=== PATIENT | male | born 1965 | race Caucasian/White ===

== ENCOUNTER 2016-12-02 09:08 | Inpatient (IN) | payer OTHER ==
[~2016-12-02] VITALS: Ht 147.3 cm; Wt 47.0 kg
--- NOTE | ~2016-12-02 | A ---
[facility] Nutrition Therapy DATE: 12/03/16 Patient: RICO MILLER Physician: LADONNA Address: [address] [facility] Room/Bed: [address] [place] [address], Zip: [place] [address] Admit Date: 12/02/16 Date of : [birth year] Height: 4 10 Weight: 93 42.5 NUTRITIONAL ASSESSMENT: REASON: 1 point for home TFs 51 yo male admitted for decreased oxygen, possible aspiration PNA PMH: Mental retardation, nonverbal, aphasic, dysphagia s/p PEG, seizure disorder, failure to thrive, CAD, functional quadriplegia, cerebral palsy, [place], C.diff Anthropometrics: Ht: 4'10" Wt: 42.5 kg BMI: 19.6 Labs: K+ 3.4 Creat 0.4 Alb 3.0 Meds: NaCl, Os-fadi + D, MgSO4, KCl, MVI + minerals, protonix, lipitor I/O & Bowel function: 0/1, last BM 12/02 Skin Integrity: Old pressure ulcer scar left buttock Redness to COURTNEY Edema: None noted Estimated Nutrition Needs: 1277-4475 kcals (30-35 kcals/kg) 51-64 grams protein (1.2-1.4 grams/kg) Diet: NPO Home enteral nutrition regimen: Osmolite 1.5 @ 50 mL/hr + 30 grams protein supplement Provides: ~1800 kcals/ 105 grams protein Not provided specific protein supplement, therefore, exact amount of kcals provided from home regimen unknown Assessment: Chart reviewed, events noted. 51 yo male admitted for possible aspiration PNA. Per information in chart, the pt is typically NPO and receives home EN regimen as noted above. Pt is nonverbal, and came [facility] hospital [facility] [place]. Per RN report, the pt was recently discharged from an OSH, with chronic ileus and recurrent aspiration PNA. Of note, the pt has contractures, and his positioning could be contributing to aspiration, poor enteral tolerance. RD discussed this with MD, who also adds that the pt is likely not able to clear his secretions well. Pt is currently being taken down for PICC line per RN [facility] Nutrition Therapy DATE: 12/03/16 Patient: RICO MILLER Physician: WETANG Address: [address] [facility]/Bed: [address], Zip: [place] [address] Admit Date: 12/02/16 Date of : [birth year] Height: 4 10 Weight: 93 42.5 report, and he has not received any enteral nutrition since admission. Please see recommendationa below. Dx: Inadequate protein-energy intake RT clinical condition, possible aspiration PNA AEB NPO status. Intervention: 1. NPO 2. Enteral nutrition once medically feasible Monitoring, Evaluation and Goals: 1. Enteral nutrition; tolerate >80% goal volume once medically feasible 2. Improve labs; K+ 3. Weight; prevent weight loss 4. GI; promote regular GI function Recommendations: 1. Ensure the pt's feeding tube is in the correct position. 2. Consult GI regarding increased residuals and reported chronic ileus. 3. Once medically feasible, resume enteral nutrition with Osmolite 1.5 @ 20 mL/hr. Increase by 10 mL q 6 hrs as tolerated to goal of 40 mL/hr This would provide: 1440 kcals/ 60 grams protein/ 730 mL free H20 PLEASE NOTE: RD RECOMMENDING DECREASE IN EN GOAL RATE, THE PT'S HOME REGIMEN COULD BE EXCEEDING HIS NUTRITIONAL NEEDS AND RESULTING IN SYMPTOMS OF GI INTOLERNCE AND ELEVATED RESIDUALS 4. Ensure HOB is elevated at a minimum of 30-45 degrees. Pt is at moderate nutritional risk. RD will follow hospital course per protocol. Respectfully, JERROD LEMUS RD, LD Food and Nutritional Services [facility] cc: client file
--- NOTE | ~2016-12-02 | EKG ---
PATIENT: RICO MILLER UNIT #: [id number] Ventricular Rate: 124 BPM Atrial Rate: 124 BPM P-R Interval: 170 ms QRS Duration: 56 ms Q-T Interval: 278 ms QTC Calculation(Bezet): 399 ms P [place]: 66 degrees Calculated R [place]: 159 degrees Calculated T [place]: 80 degrees Diagnosis Line: Sinus tachycardia Diagnosis Line: Possible Lateral infarct , age undetermined Diagnosis Line: Marked ST abnormality, possible septal Diagnosis Line: subendocardial injury Diagnosis Line: Abnormal ECG Diagnosis Line: When compared with ECG of 06-JUN-2016 22:37, Diagnosis Line: Questionable change in QRS axis Diagnosis Line: Borderline criteria for Lateral infarct are now Diagnosis Line: Present Diagnosis Line: ST elevation now present in Inferior leads Diagnosis Line: Confirmed by ISABEL HARE MD ([id number]) on Diagnosis Line: 12/03/2016 8:29:10 AM INTERPRETING MD: PAYAM COYNE
--- NOTE | ~2016-12-02 | FU ---
[facility] Nutrition Therapy DATE: 12/05/16 Patient: RICO MILLER Physician: LADONNA Address: [address] [facility] Room/Bed: [address] [place] [address], Zip: [place] [address] Admit Date: 12/02/16 Date of : [birth year] Height: 4 10 Weight: 104 47.5 NUTRITION MONITORING/FOLLOW-UP: Reason: Enteral nutrition follow-up 51 y/o male admitted for decreased oxygen, possible aspiration PNA Anthropometrics: ht: 4'10" wt: 104# (47 kg) BMI 19 Labs: No updated labs since most recent RD assessment Meds: lactulose, protonix IV, keppra, NaCl, zosyn, lipitor, plavix I&O's: 3165/161, last BM 12/05 (diarrhea noted) Skin: no change since previous note. No edema Estimated Nutrition Needs: 4129-9835 kcal (30-35 kcal/kg) 51-64 g protein (1.2-1.4 g/kg) Diet: NPO Home enteral nutrition regimen: Osmolite 1.5 @ 50 mL/hr + 30 grams protein supplements Provides: ~1800 kcal, 105 g protein (exact amount of kcals provided from protein unknown) Assessment: Chart reviewed, events noted. Pt seen for enteral nutrition follow up. Per chart, the pt is typically NPO and receives home enteral nutrition regimen as noted above. Since previous assessment on 12/03/2016, no tubefeeds have been ordered. Per chart and RN, the tubefeeds have been put on hold due to high residuals. This pt has been NPO since admission. The RN reports that the pt's foster mom reported the pt frequently experiences high residuals, with both continuous and bolus feeds. RN reports that the pt's MD is supposed to call today, will hopefully provide more information regarding the plan for this pt's nutrition. The pt had a chest x-ray with results pending for a possible ileus. Please see recommendations, RD to follow. Dx: Inadequate oral intake r/t clinical condition, possible aspiration PNA AEB NPO status -ACTIVE Intervention: 1. NPO 2. Enteral nutrition once medically feasible Monitoring, Evaluation and Goals: [facility] Nutrition Therapy DATE: 12/05/16 Patient: RICO MILLER Physician: LADONNA Address: [address] [facility] Room/Bed: [address] [place] [address], Zip: [place] [address] Admit Date: 12/02/16 Date of : [birth year] Height: 4 10 Weight: 104 47.5 1. Enteral nutrition; tolerate >80% goal volume once medically feasible -NOT ACTIVE/NOT MET 2. Improve labs- K+ -UNMEASURED 3. Weight; prevent weight loss -IN PROGRESS 4. GI; promote regular GI function -NOT MET CONTNUE ABOVE GOALS Recommendations: 1. Monitor GI function noting possible ileus. 2. Once medically feasible, begin enteral nutrition support with Osmolite 1.5 @ 20 mL/hr. Increase by 10 mL q 6 hours as tolerated to goal of 40 mL/hr. This would provide 1440 kcals, 60 g protein, 730 free h20. PLEASE NOTE, THIS IS A DECREASE IN EN GOAL RATE, THE PT'S HOME REGIMEN COULD BE EXCEEDING HIS NUTRITIONAL NEEDS AND RESULTS IN SYMPTOMS OF GI INTOLERANCE AND ELEVATED RESIDUALS 3. Ensure HOB is elevated at a minimum of 30-45 degrees as feasible. Pt is at moderate nutritional risk, RD to follow up per protocol. Respectfully, STACY MCGOWAN, manager of internal audit Angelina Cleveland, RD, LD Food and Nutritional Services [facility] cc: client file
--- NOTE | ~2016-12-02 | CO ---
Unit #: [id number] #: [id number] Patient: RICO MILLER [id number] [address] [address] [id number] MR#: [id number] NAME: RICO MILLER. ROOM: 559 Age: 51 Sex: M Admission Date: 12/02/2016 : 1965 Attending Physician: Tommie Rushing M.D. Primary Care Physician: Jairo Lacey M.D. Consultation Date: 12/05/2016 CONSULTATION REPORT PRIMARY CARE PHYSICIAN Jairo Lacey M.D. REASON FOR CONSULTATION High residuals on PEG feeds. HISTORY OF PRESENT ILLNESS Mr. Miller is a 51-year-old white gentleman, who is well known to me from [facility]. The patient has longstanding history of cerebral palsy with mental retardation, and has been in and out of the hospitals over the past 6 months, most recently in [facility], where he was admitted for several days as a result of aspiration pneumonia and treated with multitude of antibiotics. He is on long-term PEG feeds and his repeated x-rays have shown considerable gaseous distention of the stomach, small bowel, and large bowel. The patient at best is nonverbal and curled up in bed because of flexion contractures. He is on multiple antibiotics at the present time. PAST MEDICAL HISTORY Significant for history of cerebral palsy; history of C diff colitis; history of VRE; right upper extremity DVT, functional quadriplegia; mental retardation; dysphagia, status post PEG placement; seizure disorder; history of ulcerative colitis and proctitis; history of chronic respiratory failure; aspiration, requiring intubation the past. PAST SURGICAL HISTORY Included PEG placement, cholecystectomy, and lower left extremity surgery. FAMILY HISTORY Not available due to the patient's mental status. SOCIAL HISTORY Not available due to the patient's mental status. REVIEW OF SYSTEMS Also not possible due to his mental status. ALLERGIES He is allergic to Meperidine. MEDICATIONS Medications prior to admission included clindamycin, hydrocodone/acetaminophen, Protonix, Cogentin, iron, Keppra, midodrine, multivitamins, erythromycin, and calcium. Unit #: [id number] #: [id number] Patient: RICO MILLER PHYSICAL EXAMINATION GENERAL: He is nonverbal, comfortable lying in bed. He has flexion contractures of the lower extremities. VITAL SIGNS: His temperature is 97.8, pulse is 93 per minute and regular, respiratory rate is 18, blood pressure is 135/72. He weighs 104 pounds, close to his baseline weight. HEENT: He has mild pallor. There being no icterus, lymphadenopathy, or peripheral edema. CARDIOVASCULAR: Normal heart sounds. No murmurs. LUNGS: Auscultation over the lungs reveal bilateral diminished symmetric air entry. The patient has severe kyphoscoliosis. ABDOMEN: Examination shows minimal gaseous distention with abdomen is soft and nontender. Liver and spleen are not palpable. Bowel sounds normal. The patient does have healthy PEG site with an indwelling 20-Cypriot PEG tube. DIAGNOSTIC STUDIES LABORATORY RESULTS: Shows a normal BUN and creatinine, and electrolytes. Serum potassium is 4.3 yesterday. Albumin is 3.0. White count is 6000; hemoglobin is 8.4, baseline hemoglobin of 12 to 13 and platelet count of 180 to 190. IMAGING STUDIES: Multiple x-rays of the chest and abdomen shows gaseous distention in the entire GI tract indicating poor motility rather than any obstruction. CLINICAL IMPRESSION 1. The patient with functional gastroparesis. This could be a complication of underlying sepsis or pneumonia. The gaseous distention also worsened by the fact the patient is on lactulose. 2. Underlying multiple medical problems including respiratory infection. MANAGEMENT PLAN 1. We will discontinue lactulose. To start on low dose of prokinetic Reglan 5 mg q.6. hours. 2. Restart the PEG tube feeds tomorrow as per protocol. 3. Consider conversion of gastrostomy to jejunostomy if the patient is still having significantly high-residuals after the above changes. Thank you for asking me to see this pleasant gentleman. I appreciate the consult. Dictated by... Indra Ricks/dale TD: 12/07/2016 13:31 JOB #: [id number] CC: Indra Gross M.D. Loran P. Moore, M.D. Unit #: [id number] #: [id number] Patient: RICO MILLER CONSULTATION REPORT Page 1 of 1 X Erasto Sam MD CONSULTATION REPORT
--- NOTE | ~2016-12-02 | CR6 ---
[facility] A Service of [facility] RADIOLOGY TEXT RESULTS PATIENT: RICO MILLER LOCATION: [place] [address] : [birth year] UNIT #: [id number] AGE: [address]: HUSAM WOOD V SEX: M ORDER DR: [id number] [facility] [address]. [place], [place] [address] [id number] MR#: [id number] Acc #: [id number] NAME: RICO MILLER : 1965 SEX: M STUDY DATE/TIME: 12/05/2016 11:22 UNIT: [facility] ROOM: [facility] STUDY DESCRIPTION: CR Abdomen Portable Sng View Attending Physician: Husam Wood M.D. Ordering Physician: Ed Luke Allen M.D. Primary Care Physician: Jairo Lacey M.D. MEDICAL IMAGING REPORT This report is preliminary unless electronic signature is present EXAM Abdomen one-view 12/05/2016 1122 hours CLINICAL HISTORY Abdominal pain, abdominal swelling and watery stools for 1 day. Patient from [facility]. COMPARISON CT abdomen 12/02/2016 and abdominal film 12/02/2016. FINDINGS A single view of the abdomen demonstrates leftward scoliosis of the lumbar spine. There are flexion contractures of the arms and legs. There is slightly increased amount of gas seen in the stomach and small bowel without significant distension. No definite bowel wall thickening or suspicious calcification. There is colon interposed between the liver and right hemidiaphragm. No supine evidence of free air. IMPRESSION The film is limited by the flexion contractures and scoliosis. There is increased gas in loops of small bowel, stomach and colon without distension or wall thickening. There is no supine evidence of free air. The amount of gas in the bowel is increased from 12/02/2016. Dictated by... Zainab Bustamante M.D. THIS IS AN ELECTRONICALLY VERIFIED REPORT Zainab Bustamante M.D. at 12/05/2016 2:31 PM JEANNE/cody TD: 12/05/2016 14:12 [facility] A Service of [facility] RADIOLOGY TEXT RESULTS PATIENT: RICO MILLER LOCATION: [place] [address] : [birth year] UNIT #: [id number] AGE: [address]: HUSAM WOOD V SEX: M ORDER DR: JOB #: [id number] MEDICAL IMAGING REPORT Page 1 of 1 COPY
--- NOTE | ~2016-12-02 | CO ---
Unit #: [id number] #: [id number] Patient: RICO MILLER [id number] [address] [place], [place] [address] [id number] I MR#: [id number] NAME: RICO MILLER ROOM: 559 Age: 51 Sex: M Admission Date: 12/02/2016 : 1965 Attending Physician: Tommie Rushing M.D. Primary Care Physician: Jairo Lacey M.D. CONSULTATION REPORT TYPE OF CONSULTATION Cardiology REASON FOR CONSULTATION Bradycardia. HISTORY OF PRESENT ILLNESS This is a 51-year-old white male, with history of profound mental retardation and cerebral palsy, is a [facility]ro of the [facility]. He is unable to provide any medical history because of his current mental status. Information has been obtained from the chart and previous records. According to the records, the patient was seen by our group in 2014 for sinus bradycardia. At that time, his heart rate was in the 40s. He also had a brief period of paroxysmal atrial fibrillation in 2012, but was not put on beta-wili secondary to bradycardia. He was recently discharged from [facility] on 11/22/2016, for acute respiratory failure and pneumonia requiring intubation. He was [facility] to his jail. While at the jail, the patient was noted to be tachycardic and had some abdominal distention, therefore, was sent to the hospital for evaluation. He has been found to have a right pneumonia and has been treated with IV antibiotics. During the course of his stay, the patient developed bradycardia with heart rate was in the 30s. From review of rhythm strips, he has had a sinus pauses up to 2.8 seconds. He is not on any rate lowering medications. He is on Midrin for hypotension in the past. He has been hypokalemic, where his potassium level was 2.7. Troponin negative. PAST MEDICAL HISTORY 1. A 2D echocardiogram on 05/03/2013, showed an ejection fraction approximately 55% with normal valves. 2. Paroxysmal atrial fibrillation, briefly noted in 2012, not on anticoagulation. 3. Cerebral palsy. 4. Left upper extremity deep vein thrombosis in 2014. 5. Legally blind. 6. Profound mental retardation. 7. Chronic duodenal ileus. 8. Right pneumothorax in 2014. 9. Seizure disorder. 10. Chronic aspiration pneumonia, status post PEG placement. 11. Congenital right hip dysplasia. Unit #: [id number] #: [id number] Patient: RICO MILLER 12. Nonsmoker. 13. jail resident. PAST SURGICAL HISTORY 1. PEG placement. 2. Cholecystectomy. 3. Lower extremity surgery. SOCIAL HISTORY The patient lives in a jail. He is a castro of the critical access hospital. He is mostly bed or chair bound. There is no history of illicit drug or alcohol use. FAMILY HISTORY Unobtainable. ALLERGIES Demerol. MEDICATIONS Home medications; 1. Clindamycin 20 mL t.i.d. 2. Hydrocodone/acetaminophen 5/325 q.4 hours p.r.n. 3. Protonix 40 mg daily. 4. Cogentin 1 mg daily. 5. Ferrex 150 mg daily. 6. Keppra . 7. ProAmatine 10 mg t.i.d. 8. Multivitamin one tablet daily. 9. Erythromycin 5 mL t.i.d. 10. Calcium 2.5 mL daily. REVIEW OF SYSTEMS Unable to obtain, because of the patient's current mental status. PHYSICAL EXAMINATION VITAL SIGNS: Blood pressure 110/65, heart rate 114, and temperature 98.0. BMI of 19. GENERAL: This is a 51-year-old, middle-aged, white male, who is in no acute distress. NEUROLOGIC: He is awake with his eyes open. Moans at times. Noted for contractures. NECK: Trachea is midline. No thyromegaly or lymphadenopathy. No jugular venous distention. HEART: S1 and S2. Heart sounds are normal. No murmurs. No rubs or clicks. Regular rate and rhythm. LUNGS: With rhonchi in both lung bases. ABDOMEN: Soft with bowel sounds are present. G-tube is present. EXTREMITIES: Without leg edema. SKIN: Pale and dry. DIAGNOSTIC STUDIES LABORATORY RESULTS: Glucose 65. BUN creatinine 0.4, sodium 143, potassium 2.7, and magnesium 1.6. Troponin less than 0.05. White count 4.8, hemoglobin 8.4, hematocrit 25.7, and platelet count is 192. IMAGING STUDIES: CT of the chest showed air space density in the posterior right lower lobe. Findings favor pneumonia. Unit #: [id number] #: [id number] Patient: RICO MILLER CARDIOVASCULAR STUDIES: Electrocardiogram; sinus tachycardia with a rate of 124 beats per minute with a nonspecific ST wave abnormalities. IMPRESSION 1. Right lower lobe pneumonia. 2. Recurrent aspiration pneumonia. 3. Severe hypokalemia. 4. Sinus bradycardia with sinus pauses up to 2.8 seconds. 5. Cerebral palsy/profound mental retardation. PLAN 1. Cardiology was consulted for bradyarrhythmias. The patient is noted to have pauses less than 3 seconds, where he is asymptomatic. 2. We will check thyroid function. 3. Supplement potassium. 4. The patient is not on any rate lowering medications. Continue Midrin. Blood pressure is currently controlled. 5. We will follow the patient with you. Thank you for allowing us to assist with this patient's care. Dictated by... Meghan Nelson/dale TD: 12/07/2016 06:33 JOB #: [id number] CONSULTATION REPORT Page 1 of 1 X Gómez Mckeon APRN X CONSULTATION REPORT
--- NOTE | ~2016-12-02 | CO ---
Unit #: [id number] #: [id number] Patient: RICO MILLER [id number] [address] [address] [id number] MR#: [id number] NAME: RICO MILLER. ROOM: 559 Age: 51 Sex: M Admission Date: 12/02/2016 : 1965 Attending Physician: Tommie Rushing M.D. Primary Care Physician: Jairo Lacey M.D. Consultation Date: 12/07/2016 CONSULTATION REPORT REASON FOR CONSULTATION Antibiotic management. HISTORY OF PRESENT ILLNESS The patient is a 51-year-old male with a history of cerebral palsy and mental retardation. No family members are at the bedside. All of his history is from the chart. Apparently, he was admitted with complaints of pneumonia at [facility] and had a prolonged stay. Those records will be reviewed. He is admitted at this time with low oxygenation and decreased level of consciousness. He has been on Zosyn, vancomycin and tobramycin. Infectious Disease consultation was requested for further evaluation and antibiotic management. PAST MEDICAL HISTORY 1. Possible aspiration pneumonia, requiring intubation at [facility] recently as noted above. 2. Recurrent pneumonia. 3. C diff colitis. 4. History of VRE. 5. Right upper extremity deep vein thrombosis. 6. Functional quadriplegia. 7. Mental retardation, slight developmental delay. 8. Cerebral palsy. 9. Chronic dysphagia, status post PEG tube placement. 10. Seizure disorder. 11. Possible ulcerative colitis. 12. Cholecystectomy. SOCIAL HISTORY Remarkable for recent hospitalization and stay at foster home. ALLERGIES Meperidine, reaction unknown. CURRENT MEDICATIONS Reviewed antibiotics include day 7 of Zosyn, vancomycin, and tobramycin. PHYSICAL EXAMINATION GENERAL: Lying in bed, does not seem to be in any distress. VITAL SIGNS: Temperature 98, pulse 75, respirations 16, blood pressure 110/60. HEENT: Unremarkable. CHEST: Clear to auscultation. HEART: Normal S1, S2. Unit #: [id number] #: [id number] Patient: RICO MILLER ABDOMEN: Soft and nontender. EXTREMITIES: Shows contractures. DIAGNOSTIC STUDIES IMAGING STUDIES: CT scan of the chest shows air bronchograms and in the right lower lobe airspace disease, compatible with pneumonia. CT of abdomen and pelvis unremarkable for any acute changes. LABORATORY RESULTS: BUN less than 5, creatinine 0.3. WBC 3.3, hemoglobin 8, platelets 180. Urinalysis; had some pyuria. Cultures including blood and urine are negative. So far, sputum culture is pending. ASSESSMENT 1. Healthcare-associated pneumonia. 2. Mental retardation. 3. Possible aspiration. PLAN At this time, the patient is clinically stable. All cultures were negative. He has been hypotensive, requiring any pressors or hypoxic. Therefore, we will go ahead and discontinue tobramycin, doubt he needs dual gram-negative coverage. Continue vancomycin and Zosyn. If continues to remain stable or improved, recommended a total of 7 to 10 days of treatment. Further recommendation depending upon the course. I would like to thank Dr. Ivy for requesting us to participate in the care of this patient. We will follow this patient along with you. Dictated by... Indra Newsome TD: 12/09/2016 02:53 JOB #: [id number] CONSULTATION REPORT Page 1 of 1 X Larry Greene MD CONSULTATION REPORT
--- NOTE | ~2016-12-02 | FU ---
[facility] Nutrition Therapy DATE: 12/08/16 Patient: RICO MILLER Physician: LADONNA Address: [address] [facility] Room/Bed: [address] [place] [address], Zip: [place] [address] Admit Date: 12/02/16 Date of : [birth year] Height: 4 10 Weight: 94 43 NUTRITION MONITORING/FOLLOW-UP: Reason: TF follow-up 51 y/o male admitted for decreased oxygen, possible aspiration PNA Anthropometrics: ht: 4'10" wt: 94# (43 kg) BMI 19 -Admit weight 104# Labs: Cl-112, BUN <5, Creat 0.5, Ca++ 8.2, Alb 3.0 Meds: Protonix IV, Keppra, NaCl, Zosyn, Lipitor, reglan I&O's: 4210/12. BM 12/06 Skin: No change since previous note, no edema. Estimated Nutrition Needs: 8699-8109 kcal (30-35 kcal/kg) 51-64 g protein (1.2-1.4 g/kg) Diet: NPO Assessment: Chart reviewed, events noted. Pt seen for enteral nutrition follow-up. Pt is now receiving recommended enteral nutrition of Osmolite 1.5 @ 40 mL/hr (977mL x past 24 hours, 101% goal volume per pump history). RN reports that the pt is tolerating the tubefeeds well, and that the MD will be adding free h20 flushes to the order. Pt is unable to provide information due to mental status. RD will continue to follow. Dx: Inadequate protein-energy intake r/t clinical condition, possible aspiration PNA AEB NPO status -RESOLVED, pt now receiving >80% goal volume Dx: Inadequate oral intake r/t PMH aeb alternative nutrition support in place. Intervention: 1. Enteral nutrition 2. NPO Monitoring, Evaluation and Goals: 1. Enteral nutrition; tolerate >80% goal volume once medically feasible -MET 2. Improve labs; K+ (improved) -MET/IN PROGRESS 3. Weight; prevent weight loss -NOT MET/IN PROGRESS 4. GI; promote regular GI function -IN PROGRESS [facility] Nutrition Therapy DATE: 12/08/16 Patient: RICO MILLER Physician: LADONNA Address: [address] [facility] Room/Bed: [address] [place] [address], Zip: [place] [address] Admit Date: 12/02/16 Date of : [birth year] Height: 4 10 Weight: 94 43 Recommendations: 1. Continue enteral nutrition support of Osmolite 1.5 @ 40 mL/hr x 24 hours. This provides 1440 kcal, 60 g protein, 730mL free h20. Add free water flushes per MD. 2. Continue to monitor for signs of enteral nutrition intolerance. RD will f/u per protocol as pt is at moderate nutritional risk. Respectfully, STACY MCGOWAN, operations intern Reyna Maciel MS, RD, LD [facility] cc: client file
--- NOTE | ~2016-12-02 | CT57 ---
[facility] A Service of [facility] & [facility] RADIOLOGY TEXT RESULTS PATIENT: RICO MILLER LOCATION: [facility] 559-01 : [birth year] UNIT #: [id number] AGE: [address]: RIDGE WOODUJ V SEX: M ORDER DR: [id number] [facility] [address] [place], [place] [address] [id number] I MR#: [id number] Acc #: [id number] NAME: RICO MILLER. : 1965 SEX: M STUDY DATE/TIME: 12/02/2016 13:05 UNIT: [facility] ROOM: [facility] STUDY DESCRIPTION: CT Chest Wo Cont Attending Physician: Annita Rico M.D. Ordering Physician: Eran Salmon M.D. Primary Care Physician: Jairo Lacey M.D. MEDICAL IMAGING REPORT This report is preliminary unless electronic signature is present EXAM CT chest without contrast 12/02/2016 1305 hours HISTORY 51-year-old man with elevated heart rate, low oxygen saturation levels, fever and abdominal distension today. COMPARISON CT chest 06/07/2016 TECHNIQUE Helical noncontrasted images were obtained from the thoracic inlet through the adrenal glands. Sagittal and coronal reconstructions were performed. Total exam DLP 1133 mGy-cm for the chest abdomen and pelvis study today. This CT exam was performed with one or more of the following radiation dose reduction techniques: automatic control, adjustment of mA and/or kV according to patient size, and iterative reconstruction. FINDINGS Images through the thoracic inlet demonstrate no thyroid mass. Images through the chest are degraded by artifact from flexion contractures of the arms and legs. Patient has some fluid debris in the mid trachea that is best seen on image 14 just prior to the bifurcation of the trachea which could be related to mucus or aspirated material. Cardiac chambers, pericardium and esophagus are normal. Lung window images demonstrate stable linear scarring at the right apex. Left lung demonstrates decrease in parenchymal densities in the left lower lobe with minimal linear scar. There is a peripheral area of airspace density with air bronchogram having a somewhat triangular shape at the posterolateral right lung base new from the prior study measuring 4.6 x 4.4 cm. It is favored that this represents an area of pneumonia although other entities including a mass or pulmonary emboli could have this STS. [facility] A Service of [facility] RADIOLOGY TEXT RESULTS PATIENT: RICO MILLER LOCATION: [facility] 559-01 : [birth year] UNIT #: [id number] AGE: [address]: HUSAM WOOD V SEX: M ORDER DR: appearance. Since it has developed since 06/07/2016 a mass is unlikely. There is no pleural fluid. Limited views through the upper abdomen are negative. IMPRESSION 1. Exam is compromised by scoliosis and flexion contractures. Study does confirm the presence of a new triangular-shaped area of air airspace density in the posterior right lower lobe abutting the pleural surface measuring up to 4.6 cm. Air bronchograms are present. Findings favor the presence of pneumonia. This is new from 06/07/2016. Interval clearing of airspace density from the medial superior segment right lower lobe and the left lower lobe which were present on 06/07/2016. 2. There is some dependent debris in the trachea above the level of the left and right bronchial bifurcation which could represent aspirated material versus mucus. Dictated by... Zainab Bustamante M.D. THIS IS AN ELECTRONICALLY VERIFIED REPORT Zainab Bustamante M.D. at 12/03/2016 9:23 AM JEANNE/lucio TD: 12/02/2016 22:15 JOB #: [id number] MEDICAL IMAGING REPORT Page 1 of 1 COPY
--- NOTE | ~2016-12-02 | CO ---
Unit #: [id number] #: [id number] Patient: RICO MILLER [id number] [address] [place], [place] [address] [id number] I MR#: [id number] NAME: RICO MILLER ROOM: 559 Age: 51 Sex: M Admission Date: 12/02/2016 : 1965 Attending Physician: Tommie Rushing M.D. Primary Care Physician: Jairo Lacey M.D. CONSULTATION REPORT HISTORY OF PRESENT ILLNESS Mr. Miller is a 51-year-old male resident of [place]; for a period, he has a history of cerebral palsy, mental retardation, C diff, VRE, seizures, ulcerative colitis, who presented to the emergency room because of hypoxia and tachycardia. Apparently, he had been hospitalized at [place] recently, he was there for about a month. No history is available from the patient. He is nonverbal. According to the chart, he has had multiple admissions for aspiration pneumonia. Caregiver apparently noticed high residuals over the last week, had a temperature of 99 as well as a low oxygen saturation. He had some loose stools yesterday, which was dark and was brought to the emergency room for evaluation. In the emergency department, initial temperature was 99.6, pulse was 123, blood pressure was 100/77, and O2 saturation was 98% on room air. Chest CT abdomen and pelvis were done and showed a marked scoliosis in flexion contractures, triangular-shaped area of airspace density in the posterior right lower lobe abutting the pleural surface measuring up to 4.6 cm, there was some air bronchograms present, this was a new area as compared to CT scan on 06/07/2016. There had also been interval clearing of airspace density in the medial superior segment of the right lower lobe and left lower lobe, which had been present on CT scan from 05/2016. There was some dependent debris in the trachea. BMP is remarkable for creatinine of 0.4, potassium of 3.2, Procalcitonin is 0.14, lactic acid is 1 and then 0.7. Coags were normal. White blood cell count was 4400, hematocrit 28.3, platelet count normal. PAST MEDICAL HISTORY Apparently admission at [facility] [place] in the past month for aspiration pneumonia, history of acute on chronic respiratory failure here in May, history of C diff, VRE, right upper extremity DVT, functional quadriplegia secondary to flexion contractures, mental retardation, developmental delay, cerebral palsy, chronic dysphagia with PEG tube, recurrent aspiration, seizure disorder, history of possible ulcerative colitis. PAST SURGICAL HISTORY Surgeries; PEG tube placement, cholecystectomy, left lower extremity surgery. ALLERGIES Meperidine. FAMILY HISTORY Unobtainable from the patient. Unit #: [id number] #: [id number] Patient: RICO MILLER SOCIAL HISTORY [facility]. Lives at a foster custodial. HOME MEDICATIONS Clindamycin, hydrocodone, Protonix, Cogentin, iron, Keppra, midodrine, multivitamins, erythromycin, and calcium. REVIEW OF SYSTEMS Not possible. The patient is nonverbal. PHYSICAL EXAMINATION VITAL SIGNS: Blood pressure 106/57, pulse 68, respiratory rate 16, afebrile. HEENT: Normocephalic and atraumatic. Pupils round, and reactive. Sclerae nonicteric. Nasal passages, patent. Oral cavity, patent. NECK: Has flexion contracture. LUNGS: Relatively clear bilaterally. CARDIAC: Heart sounds distant. Regular rate and rhythm. Could not appreciate murmur, rub or gallop. ABDOMEN: Nontender. Bowel sounds present. PEG tube in place. EXTREMITIES: Without edema. NEUROLOGIC: Nonverbal, looks around. Appears in no distress. DIAGNOSTIC STUDIES LABORATORY RESULTS: Personally reviewed. White blood cell count 41253, hematocrit 39, platelet count normal. IMAGING STUDIES: CT scans personally reviewed. IMPRESSION Possible right lower lobe pneumonia versus resolving pneumonia from admission at [facility] within the last month, low procalcitonin would favor not an active pneumonia. Other problems as mentioned above. PLAN We will recheck procalcitonin in the morning. I agree with continuing current antibiotics of vancomycin, Zosyn, and tobramycin for now. We will check sputum culture. We will try to obtain previous scans from [place] to see if current abnormalities represent worsening or improvement. Dictated by... Efren Vadlivia M.D. BRYCE/dale TD: 12/04/2016 06:10 JOB #: [id number] Unit #: [id number] #: [id number] Patient: RICO MILLER CONSULTATION REPORT Page 1 of 1 X Efren Valdiiva MD CONSULTATION REPORT
--- NOTE | ~2016-12-02 | XA166 ---
[facility] A Service of [facility] & [facility] RADIOLOGY TEXT RESULTS PATIENT: RICO MILLER LOCATION: [facility] 559-01 : [birth year] UNIT #: [id number] AGE: [address]: HUSAM WOOD V SEX: M ORDER DR: [id number] [address] [facility]. [place], [place] [address] [id number] I MR#: [id number] Acc #: [id number] NAME: RICO MILLER. : 1965 SEX: M STUDY DATE/TIME: 12/03/2016 14:31 UNIT: [facility] ROOM: [facility] STUDY DESCRIPTION: XA PICC Line Placement WO Port Attending Physician: Husam Wood M.D. Ordering Physician: Physician Non-Staff Primary Care Physician: Jairo Lacey M.D. MEDICAL IMAGING REPORT This report is preliminary unless electronic signature is present EXAM PICC line placement INDICATIONS IV access. PRE-PROCEDURE The procedure was explained to the patient and/or patient visitor services representative including risks, benefits, potential complications and potential for alternative forms of treatment. Informed consent was obtained, and prior to initiating the procedure a formal timeout procedure was performed. PROCEDURE Using full standard sterile barrier technique, including caps, gowns, gloves, masks, as well as sterile skin preparation and standard sterile draping, the left arm was prepped and draped in the usual fashion, and real-time sterile ultrasound guidance was used to localize a left brachial vein and to confirm vessel patency. A hard copy ultrasound image was recorded. After local anesthesia with 1% Xylocaine, the left brachial vein was punctured using real-time sterile ultrasound guidance, and an 0.018 guidewire was advanced into the superior vena cava, using fluoroscopic guidance. A 5-[place]ican double-lumen PICC was then measured to 36 cm and deployed with the tip positioned in the superior vena cava. The position of the line was documented with a radiographic image. The line was secured in place with an adhesive dressing and an antibiotic patch was applied. Total fluoro time was 1.1 minutes. The reference air kerma is 1 mGy. Initially, the right upper extremity was performed; however, the guidewire buckled and subsequent contrast was injected and showed that there were severe narrowings in the right upper extremity veins. [facility]. [facility] A Service of [facility] RADIOLOGY TEXT RESULTS PATIENT: RICO MILLER LOCATION: [facility] 559-01 : [birth year] UNIT #: [id number] AGE: [address]: HUSAM WOOD V SEX: M ORDER DR: IMPRESSION Successful left arm PICC line placement of a 5-[place]ican double-lumen PowerPICC via the left arm under ultrasound and fluoroscopic guidance. The tip of the PICC is in good position in the superior vena cava. Dictated by... Henrry Bhakta M.D. THIS IS AN ELECTRONICALLY VERIFIED REPORT Henrry Bhakta M.D. at 12/05/2016 4:01 PM BIANCA/trevor TD: 12/04/2016 02:37 JOB #: [id number] MEDICAL IMAGING REPORT Page 1 of 1 COPY
--- NOTE | ~2016-12-02 | DS ---
Unit #: [id number] #: [id number] Patient: RICO MILLER [id number] [address] [address] [id number] I MR#: [id number] NAME: RICO MILLER. ROOM: 9 Age: 51 Sex: M Admission Date: 12/02/2016 : 1965 Discharge Date: 12/11/2016 Attending Physician: Tommie Rushing M.D. Primary Care Physician: Jairo Lacey M.D. DISCHARGE SUMMARY PERTINENT HISTORY AND HOSPITAL COURSE The patient is a 51-year-old man with history significant for cerebral palsy, mental retardation, developmental delay, and recurrent seizures who was admitted for aspiration pneumonia. During his admission, the patient was treated with IV antibiotics. He completed his course of IV antibiotics, Zosyn, and vancomycin. Also, during his admission, the patient was started on Reglan to treat G tube residuals following initiation of Reglan. Residual volume following G tube feeding was resolved. He did not have a seizure recurrence during his admission. At discharge, the patient is afebrile. Vitals are stable. His plan is to be discharged home to his care providers. DISCHARGE MEDICATIONS 1. Keppra 1000 mg G tube b.i.d. 2. Benztropine 1 mg G tube daily. 3. Midodrine 10 mg G tube t.i.d. 4. Phenobarbital 60 mg G tube twice daily. 5. Temazepam 0.5 mg G tube twice daily. 6. Iron with B complex multivitamin 150 mg G tube daily. 7. Hydrocodone/acetaminophen 5/325 mg tab 1 G tube q.4 p.r.n. for pain. 8. Reglan 5 mg G tube 4 times daily. 9. Protonix 40 mg G tube daily. 10. Calcium solution 2.5 mL G tube daily. DISCHARGE DIAGNOSES 1. Healthcare-acquired pneumonia aspiration pneumonia. 2. Functional quadriplegia secondary to cerebral palsy. 3. Severe mental retardation. 4. Reflux. 5. Gastrostomy tube feeding. 6. Chronic dysphagia. 7. Seizure disorder. CONSULTATIONS DURING ADMISSION 1. Pulmonary consultation. 2. Gastroenterology consultation. 3. Infectious disease consultation. DISCHARGE INSTRUCTIONS 1. Patient will be discharged home. 2. Follow up with primary care physician. Unit #: [id number] #: [id number] Patient: RICO MILLER Dictated by... Indra Mijares/addis TD: 12/12/2016 11:48 JOB #: [id number] DISCHARGE SUMMARY Page 1 of 1 X X DISCHARGE SUMMARY
--- NOTE | ~2016-12-02 | CT4 ---
[facility] A Service of [facility] & [facility] RADIOLOGY TEXT RESULTS PATIENT: RICO MILLER LOCATION: [facility] 559-01 : [birth year] UNIT #: [id number] AGE: [address]: RIDGE WOODUJ V SEX: M ORDER DR: [id number] [facility] [address] [place], [place] [address] [id number] I MR#: [id number] Acc #: [id number] NAME: RICO MILLER. : 1965 SEX: M STUDY DATE/TIME: 12/02/2016 13:05 UNIT: [facility] ROOM: [facility] STUDY DESCRIPTION: CT Abd and Pelv Wo Cont Attending Physician: Annita Rico M.D. Ordering Physician: Eran Salmon M.D. Primary Care Physician: Jairo Lacey M.D. MEDICAL IMAGING REPORT This report is preliminary unless electronic signature is present EXAM CT abdomen and pelvis without contrast, 12/02/2016 1305 hours HISTORY 51-year-old man with elevated heart rate, fever, abdominal distension and decreased oxygen saturation levels today. COMPARISON 06/07/2016 TECHNIQUE Helical noncontrasted images were obtained from the lung bases through the proximal femurs. No oral or intravenous contrast was administered. Sagittal and coronal reconstructions were performed. Total exam DLP 1133 mGy-cm for the chest, abdomen and pelvis study today. This CT exam was performed with one or more of the following radiation dose reduction techniques: Automatic exposure control, adjustment of mA and/or kV according to patient size, and iterative reconstruction. FINDINGS There is airspace density at the right lung base with air bronchograms, new from 06/07/2016, likely pneumonia. Please see chest CT for details of findings in the chest. Images through the abdomen demonstrate artifact from flexion contractures of the arms and legs. The liver, spleen, pancreas and adrenal glands are normal. The gallbladder is surgically absent. There is a punctate, nonobstructing stone in the posterior mid-right kidney, unchanged. There is no pelvicaliectasis, ureterectasis or ureteral calculus. There is no distension of the stomach, small bowel or colon. There are air bubbles in STS. [facility] A Service of [facility] & [facility] RADIOLOGY TEXT RESULTS PATIENT: RICO MILLER LOCATION: [facility] 559-01 : [birth year] UNIT #: [id number] AGE: [address]: HUSAM WOOD V SEX: M ORDER DR: the bladder, likely from catheterization. There is underlying scoliosis, flexion contractures at the hips and chronic subluxation or dislocation on the right. No acute bone lesions are seen. IMPRESSION 1. Exam is limited by flexion contractures and the lack of contrast. There is no acute abnormality in the abdomen or pelvis. No distension or obstruction. Dictated by... Zainab Bustamante M.D. THIS IS AN ELECTRONICALLY VERIFIED REPORT Zainab Bustamante M.D. at 12/03/2016 9:23 AM JEANNE/trevor TD: 12/02/2016 22:15 JOB #: [id number] MEDICAL IMAGING REPORT Page 1 of 1 COPY
--- NOTE | ~2016-12-02 | HP ---
Unit #: [id number] #: [id number] Patient: RICO MILLER [id number] [facility]. [place], [place] [address] [id number] I MR#: [id number] NAME: RICO MILLER. ROOM: 31341 Age: 51 Sex: M Admission Date: 12/02/2016 : 1965 Attending Physician: Annita Rico M.D. Primary Care Physician: Jairo Lacey M.D. HISTORY AND PHYSICAL CHIEF COMPLAINT Low oxygen, high heart rate. HISTORY OF PRESENT ILLNESS The patient is a 51-year-old male with a past medical history of cerebral palsy, mental retardation/developmental delay, C. difficile, VRE, seizures, and possibly ulcerative colitis, who presented to the emergency department for evaluation of the above. History is obtained from chart review and discussion with the ER staff, as well as from the patient's front loader residential driver, Vero, who is at the bedside. The patient is nonverbal and unable to provide a history. The patient has had multiple admissions for aspiration pneumonia. A caregiver noticed that he has had high residuals over the past week. He today was noted to have a temperature of 99, as well as low oxygen saturation. He also had loose stool yesterday that was dark. He was brought to the emergency department for further evaluation. In the emergency department, initial temperature, pulse, and blood pressure were 99.6, 123, and 100/77, respectively. Oxygen saturation was 98% on room air. CT of the chest, abdomen, and pelvis were done and showed findings concerning for pneumonia. He was given vancomycin, Zosyn, and tobramycin in the emergency department, as well as one liter of normal saline. He is being admitted to [facility] for evaluation and further treatment. PAST MEDICAL HISTORY 1. Admission to [facility] [place] [facility] within the past month for aspiration pneumonia requiring intubation. He was also septic and had VRE (no records). 2. Admission to [facility] June 14 through June 18, 2016, for acute on chronic respiratory failure and pneumonia. 3. History of C. difficile. 4. History of VRE. 5. Right upper extremity DVT. 6. Functional quadriplegia. 7. Mental retardation/developmental delay. 8. Cerebral palsy. 9. Chronic dysphagia, status post PEG tube placement. 10. Seizure disorder. 11. Possible history of ulcerative colitis per record review. Unit #: [id number] #: [id number] Patient: RICO MILLER PAST SURGICAL HISTORY 1. Percutaneous endoscopic gastrostomy tube placement. 2. Cholecystectomy. 3. Left lower extremity surgery. SOCIAL HISTORY The patient is a castro of the count includes the [facility]. He lives in a foster home. He is immobile. His code status is a Full Code. FAMILY HISTORY Unobtainable and unknown. ALLERGIES Meperidine. HOME MEDICATIONS 1. Clindamycin 20 mL t.i.d. 2. Hydrocodone and acetaminophen 5/325 q.4 hours p.r.n. 3. Protonix 40 mg daily. 4. Cogentin 1 mg daily. 5. Iron 150 mg daily. 6. Keppra 10 mg twice daily. 7. Midodrine 10 mg t.i.d. 8. Multivitamin daily. 9. Erythromycin 4 times daily. 10. Calcium 2.5 mL daily. REVIEW OF SYSTEMS A complete review of systems is unobtainable from the patient but negative except as indicated in the History of Present Illness per the front loader residential driver. PHYSICAL EXAMINATION VITAL SIGNS: Temperature is 99.6, pulse 123, respirations 18, blood pressure 100/77, and oxygen saturation is 98% on room air. GENERAL: Patient is a male who is awake and alert. HEENT: Head is atraumatic. Mucous membranes are dry. NECK: Supple. Trachea is midline. CARDIOVASCULAR: Regular rate and rhythm. LUNGS: A few scattered rhonchi. Breathing is not labored. ABDOMEN: Soft and nontender with bowel sounds present in all four quadrants. A PEG tube is in place. EXTREMITIES: Contracted. NEUROLOGIC: Patient is nonverbal. He is at baseline per the program facilitator. PSYCHIATRIC: Patient is cooperative. SKIN: Skin of examined areas is warm and dry. DIAGNOSTIC STUDIES LABORATORY: Complete blood count notable for MCV of 96.9. Troponin is less than 0.05. Urinalysis is notable for 3+ leukocyte esterase, 1+ protein, and 2+ blood, with 10-25 red blood cells and enumerable white blood cells. Comprehensive metabolic panel notable for potassium of 3.2, chloride 95, CO2 of 32, alkaline phosphatase 138, and albumin 3.3. Lipase is 14. INR is 1.1. Lactic acid is 1. IMAGING: CT of the chest, abdomen, and pelvis shows findings concerning for right lower lobe infiltrate. Acute abdominal series shows nonspecific Unit #: [id number] #: [id number] Patient: RICO MILLER bowel gas pattern. CARDIOLOGY: EKG shows sinus tachycardia with a rate of 124 beats per minute. ASSESSMENT The patient is a 51-year-old male with: 1. Aspiration pneumonia. The patient received vancomycin, Zosyn, and tobramycin in the emergency department. 2. Hypokalemia with potassium of 3.2. 3. Chronic dysphagia, status post percutaneous endoscopic gastrostomy tube placement. 4. History of cerebral palsy with functional quadriplegia. 5. Mental retardation/developmental delay, nonverbal. 6. History of Clostridium difficile. 7. History of vancomycin-resistant Enterococcus. 8. Seizure disorder, maintained on Keppra. 9. Possible history of ulcerative colitis. PLAN 1. Admit to intermediate level. 2. N.p.o. 3. Normal saline at 75 mL/hour. 4. Blood cultures x2. 5. Sputum culture and sensitivity. 6. Procalcitonin level. 7. Streptococcal and legionella urine antigens. 8. Supplemental oxygen. 9. Vancomycin IV, tobramycin IV, and Zosyn IV pending further workup. 10. DuoNebs q.4 hours. 11. Consult Chest Medicine. 12. Serial cardiac enzymes. 13. Hold tube feeds. 14. Check magnesium level. 15. Potassium/magnesium protocol. 16. Hemoccult stool. 17. Urine culture and sensitivity on urine in the lab. 18. Repeat labs in the morning. 19. Additional workup and consultants based on above. 20. Regarding code status, the patient is a Full Code. 1. Dictated by Indra Cruz/nathan TD: 12/02/2016 17:27 JOB #: [id number] Unit #: [id number] #: [id number] Patient: RICO MILLER HISTORY AND PHYSICAL Page 1 of 1 X Annita Rico MD HISTORY AND PHYSICAL
--- NOTE | ~2016-12-02 | CR2 ---
[facility] A Service of [facility] & [facility] RADIOLOGY TEXT RESULTS PATIENT: RICO MILLER LOCATION: [place] [id number] : [birth year] UNIT #: [id number] AGE: [address]: RIDGE WOODUJ V SEX: M ORDER DR: [id number] [facility] [address] [facility]. [place], [place] [address] [id number] I MR#: [id number] Acc #: [id number] NAME: RICO MILLER. : 1965 SEX: M STUDY DATE/TIME: 12/02/2016 09:48 UNIT: [facility] ROOM: [id number] STUDY DESCRIPTION: CR Abdomen Acute Series Attending Physician: Annita Rico M.D. Ordering Physician: Eran Salmon M.D. Primary Care Physician: Jairo Lacey M.D. MEDICAL IMAGING REPORT This report is preliminary unless electronic signature is present EXAM Acute abdomen series, 12/02/2016, 0940 hours. CLINICAL HISTORY 51-year-old patient from [facility] with 1-day history of increasing residuals in stomach, diarrhea, abdominal swelling. Patient expresses pain on exam. COMPARISON 06/14/2016 FINDINGS Upright chest film is limited as the patient's arm is obliquely oriented over the right chest with hand over the right neck. The lungs do appear clear. Underlying scoliosis is stable. Images of the abdomen are limited by flexion contractures of the arms and legs. There is gaseous distension of loops of bowel, less than that seen on 06/14/2016. Gastrostomy tube projects in the midline. No free air is seen. IMPRESSION Films are limited. Lungs appear clear. Stable scoliosis and gastrostomy tube. There is a nonspecific bowel gas pattern without distension or wall thickening. No free air is seen. There is colon interposed between the liver which accounts for the finding of lucency below the right hemidiaphragm unchanged from 06/14/2016. Dictated by... Zainab Bustamante M.D. THIS IS AN ELECTRONICALLY VERIFIED REPORT Zainab Bustamante M.D. at 12/03/2016 9:22 AM [facility] A Service of [facility] & [facility] RADIOLOGY TEXT RESULTS PATIENT: RICO MILLER LOCATION: [facility] [id number] : [birth year] UNIT #: [id number] AGE: [address]: HUSAM WOOD V SEX: M ORDER DR: Darya TD: 12/02/2016 17:03 JOB #: [id number] MEDICAL IMAGING REPORT Page 1 of 1 COPY
--- NOTE | ~2016-12-02 | CR72 ---
[facility] A Service of [facility] & [facility] & [facility] RADIOLOGY TEXT RESULTS PATIENT: RICO MILLER LOCATION: [facility] 55- : [birth year] UNIT #: [id number] AGE: [address]: HUSAM WOOD V SEX: M ORDER DR: [id number] [facility] [address] [place], [place] [address] [id number] I MR#: [id number] Acc #: [id number] NAME: RICO MILLER. : 1965 SEX: M STUDY DATE/TIME: 12/11/2016 6:38 UNIT: [facility] ROOM: [facility] STUDY DESCRIPTION: CR Chest Single View Portable Attending Physician: Husam Wood M.D. Ordering Physician: Efren Valdivia M.D. Primary Care Physician: Jairo Lacey M.D. MEDICAL IMAGING REPORT This report is preliminary unless electronic signature is present EXAM Frontal chest, 12/11/2016. INDICATIONS Low O2 sats, fever, shortness of air symptoms for the past 9 days. Tachycardia. Hypertension. TECHNIQUE Frontal chest compared with 12/02/2016. FINDINGS There is a left-sided PICC line at the distal SVC level. There is significant S-shaped scoliosis of the thoracolumbar spine. Cardiac silhouette is within normal limits. Vascularity is unremarkable. Coarsened interstitial markings are present bilaterally, most characteristic of chronic interstitial changes with small cystic changes in the upper lobes, right greater than left. No new dense consolidation. There are slightly increased faint opacities in the right and left lung base, which may represent areas of developing atelectasis or faint infiltrates. Follow up to clearing after appropriate therapy is recommended. There is no pneumothorax. No distinct effusion. There is gaseous distension of what appears to be bowel and stomach in the upper abdomen, incompletely evaluated or characterized. IMPRESSION 1. Limited study secondary to nonstandard positioning and patient functional status. 2. Low lung volumes with imaging features suggestive of chronic lung changes and developing atelectasis or, less likely, faint infiltrates in the lung bases, right greater than left. Follow up to clearing recommended. 3. No pneumothorax. 4. Gaseous distension of bowel in the upper abdomen and gaseous STS. [facility] A Service of [facility] & [facility] & [facility] RADIOLOGY TEXT RESULTS PATIENT: RICO MILLER LOCATION: [facility] [id number] : [birth year] UNIT #: [id number] AGE: [address]: HUSAM WOOD V SEX: M ORDER DR: distension of the stomach. This is incompletely characterized on this chest film. Acute abdominal series could be performed for further assessment if clinically desired or warranted. STAT * RESULT 1. Dictated by... Ty Michel M.D. THIS IS AN ELECTRONICALLY VERIFIED REPORT Ty Michel M.D. at 12/11/2016 5:12 PM JONNY/addis TD: 12/11/2016 07:39 JOB #: [id number] MEDICAL IMAGING REPORT Page 1 of 1 COPY
[~2016-12-02 09:08] MED LIST: ACETAMINOPHEN PO; ACETAMINOPHEN RC; AMLODIPINE BESY10 MG PO; AUGMENTIN; AUGMENTIN PO; AUGMENTIN875 M1; AUGMENTIN875 MG JT; BACLOFEN10 MG GT; BACLOFEN10 MG PEG; BACLOFEN10 MG PO; CERTA VITE9 MG/15 ML DOB; CERTA VITE9 MG/15 ML GT; CERTA VITE9 MG/15 ML PEG; CERTA VITE9 MG/15 ML PO; CHILDREN'S650 MG/20. PEG; CIPRO PO; CLONAZEPAM0.5 MG PO; CLOPIDOGREL BIS75 MG PO; DIFLUCAN200 MG PEG; FAMOTIDINE20 M1 PO; FLAGYL GT; FLAGYL PO; FLINTSTONES T100 MCG PEG; HYDRALAZINE HCL25 MG PO; IPRAT-ALBUT 0.5-3 ML INH; JEVITY 1.2; JEVITY 1.5 CA1000 ML; JEVITY 1.5 CA1000 ML DOB; JEVITY 1.5 CA1000 ML GT; KEPPRA GT; KEPPRA100 MG/ML GT; KEPPRA1000 MG DOB; KEPPRA500 MG/51 DOB; KEPPRA500 MG/51 PEG; KEPPRA750 MG PEG; KEPPRA750 MG PO; KLONOPIN PEG; KLONOPIN PO; KLONOPIN0.5 M2 GT; KLONOPIN0.5 M3 PO; KLONOPIN0.5 MG DOB; KLONOPIN0.5 MG GT; KLONOPIN0.5 MG NG; KLONOPIN0.5 MG PEG; KLONOPIN0.5 MG PO; LACTULOSE10 G/15 ML GT; LACTULOSE10 G/15 ML PO; LEVAQUIN GT; LEVETIRACE100 MG/1 M DOB; LEVETIRACE100 MG/1 M GT; LIORESAL10 MG DOB; LIORESAL10 MG GT; LIORESAL10 MG PO; LIPITOR40 MG PO; LOTRIMIN 1% CR30 GM; LOTRIMIN 1% CR30 GM EXT; MAGNESIUM400 MG GT; MAXIPIME1 GM IJ; METRONIDAZ500 MG/101 PEG; MIRALAX PO; MIRALAX17 GM DOB; MIRALAX17 GM GT; MIRALAX255 GM PO; MULTI DELYN; MULTI VITAMIN1 EACH GT; MULTIVITAM9 MG/15 M1 GT; NEXIUM DOB; NEXIUM GT; NEXIUM PEG; NEXIUM PO; NEXIUM40 MG/PACK GT; NEXIUM40 MG/PACK PO; PHENOBARB PEG; PHENOBARB PO; PHENOBARBI20 MG/5 M1 GT; PHENOBARBI20 MG/5 M1 PEG; PHENOBARBI20 MG/5 M1 PO; PHENOBARBI20 MG/5 M2 DOB; PHENOBARBI20 MG/5 ML DOB; PHENOBARBI20 MG/5 ML GT; PHENOBARBITAL PEG; PHENOBARBITAL PO; PIPERACIL-TA3.375 G1 IV; PREDNISONE GT; PRILOSEC PO; REGLAN GT; REGLAN PO; REGLAN5 MG PEG; SENNA S TABLET1 TAB PO; SEROQUEL PO; SEROQUEL25 MG DOB; SEROQUEL25 MG GT; SEROQUEL25 MG PEG; SEROQUEL25 MG PO; SERTRALINE HCL100 M1 PO; SPRITAM1000 MG GT; TRILEPTAL PO; TYLENOL; TYLENOL325 MG/10.; TYLENOL325 MG/10. GT; VANCOCIN HCL250 M1 PEG; VANCOMYCIN125 MG/2.5 GT; XOPENEX1.25 MG/3 NEB; [UNRECOGNIZED DRUG - OTHER] FT; [UNRECOGNIZED DRUG - OTHER] GT; [UNRECOGNIZED DRUG - OTHER] RC
[2016-12-02 10:47] LABS: BASOPHIL% 0.3 % (0-2.5); EOSINOPHIL% 0.3 % (0.0-7.0); LYMPHOCYTE# 0.9 X10e3 (1.0-3.5); LYMPHOCYTE% 8.6 % (17.0-45.0); MEAN CELL VOLUME 96.9 FL (83-96); MEAN CORPUSCULAR HEMOGLOBIN 32.2 PG (28-34); MEAN CORPUSCULAR HGB CONC 33.2 g/dL (30-36); MEAN PLATELET VOLUME 8.9 FL (6.5-11.5); MONOCYTE# 0.8 X10e3 (0-1.0); NEUTROPHIL# 8.5 X10e3 (1.5-7.1); NEUTROPHIL% 82.8 % (40-75); PLATELET COUNT 332 X10e3 (140-420); RED BLOOD COUNT 4.03 X10e (3.90-5.60); RED CELL DISTRIBUTION WIDTH 17.7 % (11.0-15.5); WHITE BLOOD COUNT 10.3 X10e3 (4.0-10.5)
[2016-12-02 10:53] LABS: DIFF IND NO
[2016-12-02 10:54] LABS: POC - CKMB 2.6 ng/mL (0.0-7.9); POC - TROPONIN <0.05 ng/mL (<=0.05)
[2016-12-02] MEDS ORDERED: CLEOCIN PA75 MG/5 M1 GT (10:54)
[2016-12-02] MEDS ORDERED: PATIENT'S PHARMACY (10:54)
[2016-12-02] MEDS ORDERED: HYDROCODON-ACE1 EAC7 GT (10:55)
[2016-12-02] MEDS ORDERED: PROTONIX GT (10:55)
[2016-12-02] MEDS ORDERED: COGENTIN1 M1 GT (10:56)
[2016-12-02] MEDS ORDERED: PROAMATINE10 MG GT (10:58)
[2016-12-02] MEDS ORDERED: FERREX 150 FOR1 EACH GT (10:58)
[2016-12-02] MEDS ORDERED: LEVETIRACE100 MG/1 M GT (10:58)
[2016-12-02] MEDS ORDERED: MULTI VITAMIN1 EACH GT (10:58)
[2016-12-02] MEDS ORDERED: E.E.S.-GRA200 MG/5 M GT (10:59)
[2016-12-02] MEDS ORDERED: CALCIUM GT (11:00)
[2016-12-02 12:21] LABS: URINE SOURCE CLEAN CATCH
[2016-12-02 12:38] LABS: URINE APPEARANCE CLOUDY; URINE BILIRUBIN NEG (NEG); URINE BLOOD 2+ (NEG); URINE COLOR DK YELLOW; URINE GLUCOSE NEG (NEG); URINE KETONE TRACE (NEG); URINE LEUKOCYTE ESTERASE 3+ (NEG); URINE NITRATE NEG (NEG); URINE PH 8.5 (5-8); URINE PROTEIN 1+ (NEG); URINE SPECIFIC GRAVITY 1.025 (1.003-1.035); URINE UROBILINOGEN 0.2 MG/DL (NEG)
[2016-12-02 12:42] LABS: CULTURE INDICATED? YES; URINE BACTERIA AUWI NEG (NEGATIVE); URINE SQUAMOUS EPITHELIAL CELL NONE SEEN /[HPF]; UWBCS1 AUWI INNUM (0-5)
[2016-12-02 12:53] LABS: ALBUMIN SERUM 3.3 g/dL (3.5-5.0); BILIRUBIN, DIRECT 0.1 mg/dL (0.0-0.2); BILIRUBIN,INDIRECT 0.4 mg/dL (0.0-0.9); BILIRUBIN,TOTAL 0.5 mg/dL (0.2-2.0); CALCIUM SERUM 8.6 mg/dL (8.4-10.2); CREATININE SERUM 0.5 mg/dL (0.6-1.4); GLOM FILT RATE Estimated 125.5 mL/min (>60); POTASSIUM 3.2 mmol/L (3.5-5.1); PROTEIN TOTAL SERUM 7.7 g/dL (6.0-8.3)
[2016-12-02 13:11] LABS: INR 1.1; PARTIAL THROMBOPLASTIN TIME 31.6 SECONDS (23.5-31.3); PROTHROMBIN TIME (PATIENT) 11.9 SECONDS (10.0-11.7)
[2016-12-02 16:39] LABS: MAGNESIUM 1.7 mg/dL (1.6-3.0)
[2016-12-02 16:48] LABS: CK TOTAL 15 IU/L (36-174)
[2016-12-02 17:05] LABS: PROCALCITONIN 0.14 NG/ML
[2016-12-02 23:34] LABS: CK TOTAL 20 IU/L (36-174)
[2016-12-03 06:22] LABS: HEMATOCRIT 30.3 % (38.0-50.0); MEAN CELL VOLUME 97.3 FL (83-96); MEAN CORPUSCULAR HEMOGLOBIN 31.8 PG (28-34); MEAN CORPUSCULAR HGB CONC 32.6 g/dL (30-36); MEAN PLATELET VOLUME 8.5 FL (6.5-11.5); RED BLOOD COUNT 3.11 X10e (3.90-5.60); RED CELL DISTRIBUTION WIDTH 18.3 % (11.0-15.5); WHITE BLOOD COUNT 6.5 X10e3 (4.0-10.5)
[2016-12-03 06:42] LABS: BILIRUBIN,TOTAL 0.5 mg/dL (0.2-2.0); CALCIUM SERUM 8.4 mg/dL (8.4-10.2); CREATININE SERUM 0.4 mg/dL (0.6-1.4); GLOM FILT RATE Estimated 137.6 mL/min (>60); MAGNESIUM 1.6 mg/dL (1.6-3.0); POTASSIUM 3.4 mmol/L (3.5-5.1); PROTEIN TOTAL SERUM 6.9 g/dL (6.0-8.3)
[2016-12-03 07:19] LABS: HEMOGLOBIN 9.9 gm/dL (13.0-16.0)
[2016-12-03 14:34] LABS: HEMATOCRIT 28.3 % (38.0-50.0); HEMOGLOBIN 9.3 gm/dL (13.0-16.0); MEAN CELL VOLUME 98.2 FL (83-96); MEAN CORPUSCULAR HEMOGLOBIN 32.1 PG (28-34); MEAN CORPUSCULAR HGB CONC 32.7 g/dL (30-36); MEAN PLATELET VOLUME 7.9 FL (6.5-11.5); RED BLOOD COUNT 2.88 X10e (3.90-5.60); RED CELL DISTRIBUTION WIDTH 18.2 % (11.0-15.5); WHITE BLOOD COUNT 4.4 X10e3 (4.0-10.5)
[2016-12-03 16:45] LABS: LEGIONELLA AG URINE NEG (NEG)
[2016-12-04 01:42] LABS: HEMATOCRIT 26.9 % (38.0-50.0); HEMOGLOBIN 8.9 gm/dL (13.0-16.0); MEAN CELL VOLUME 97.9 FL (83-96); MEAN CORPUSCULAR HEMOGLOBIN 32.3 PG (28-34); MEAN PLATELET VOLUME 7.9 FL (6.5-11.5); RED BLOOD COUNT 2.75 X10e (3.90-5.60); RED CELL DISTRIBUTION WIDTH 18.1 % (11.0-15.5); WHITE BLOOD COUNT 6.1 X10e3 (4.0-10.5)
[2016-12-04 09:14] LABS: URINE APPEARANCE CLEAR; URINE BILIRUBIN NEG (NEG); URINE BLOOD 2+ (NEG); URINE COLOR YELLOW; URINE GLUCOSE NEG (NEG); URINE KETONE 2+ (NEG); URINE LEUKOCYTE ESTERASE 1+ (NEG); URINE NITRATE NEG (NEG); URINE PH 7.5 (5-8); URINE PROTEIN NEG (NEG); URINE UROBILINOGEN 0.2 MG/DL (NEG)
[2016-12-04 09:16] LABS: URINE BACTERIA AUWI NEG (NEGATIVE); URINE SQUAMOUS EPITHELIAL CELL OCC /[HPF]
[2016-12-04 13:41] LABS: HEMATOCRIT 25.7 % (38.0-50.0); HEMOGLOBIN 8.4 gm/dL (13.0-16.0); MEAN CELL VOLUME 98.6 FL (83-96); MEAN CORPUSCULAR HEMOGLOBIN 32.1 PG (28-34); MEAN CORPUSCULAR HGB CONC 32.6 g/dL (30-36); MEAN PLATELET VOLUME 8.1 FL (6.5-11.5); RED BLOOD COUNT 2.6 X10e (3.90-5.60); RED CELL DISTRIBUTION WIDTH 18.3 % (11.0-15.5); WHITE BLOOD COUNT 4.8 X10e3 (4.0-10.5)
[2016-12-06 07:48] LABS: CALCIUM SERUM 7.7 mg/dL (8.4-10.2); CARBON DIOXIDE 19 mmol/L (22-31); CHLORIDE 116 mmol/L (100-111); CREATININE SERUM 0.3 mg/dL (0.6-1.4); GLOM FILT RATE Estimated 154.8 mL/min (>60); GLUCOSE FASTING 65 mg/dL (70-110); SODIUM 143 mmol/L (135-145)
[2016-12-06 08:08] LABS: BLOOD UREA NITROGEN <5 mg/dL (9-23); BUN/CREATININE RATIO 16.66; POTASSIUM 2.7 mmol/L (3.5-5.1)
[2016-12-06 19:54] LABS: POTASSIUM 2.8 mmol/L (3.5-5.1)
[2016-12-07 05:30] LABS: BASOPHIL% 0.8 % (0-2.5); EOSINOPHIL# 0.2 X10e3 (0-0.7); EOSINOPHIL% 6.6 % (0.0-7.0); HEMATOCRIT 24.2 % (38.0-50.0); LYMPHOCYTE# 0.9 X10e3 (1.0-3.5); LYMPHOCYTE% 27.3 % (17.0-45.0); MEAN CELL VOLUME 99.1 FL (83-96); MEAN CORPUSCULAR HEMOGLOBIN 32.6 PG (28-34); MEAN CORPUSCULAR HGB CONC 32.9 g/dL (30-36); MONOCYTE# 0.5 X10e3 (0-1.0); MONOCYTE% 16.6 % (3.0-12.0); NEUTROPHIL# 1.6 X10e3 (1.5-7.1); NEUTROPHIL% 48.7 % (40-75); PLATELET COUNT 180 X10e3 (140-420); RED BLOOD COUNT 2.44 X10e (3.90-5.60); RED CELL DISTRIBUTION WIDTH 18.3 % (11.0-15.5); WHITE BLOOD COUNT 3.3 X10e3 (4.0-10.5)
[2016-12-07 05:37] LABS: DIFF IND NO
[2016-12-07 07:15] LABS: CALCIUM SERUM 7.8 mg/dL (8.4-10.2); CARBON DIOXIDE 20 mmol/L (22-31); CHLORIDE 117 mmol/L (100-111); CREATININE SERUM 0.3 mg/dL (0.6-1.4); GLOM FILT RATE Estimated 154.8 mL/min (>60); GLUCOSE FASTING 92 mg/dL (70-110); MAGNESIUM 1.5 mg/dL (1.6-3.0); SODIUM 145 mmol/L (135-145)
[2016-12-07 07:17] LABS: BLOOD UREA NITROGEN <5 mg/dL (9-23); BUN/CREATININE RATIO 16.66
[2016-12-08 07:11] LABS: HEMATOCRIT 25.4 % (38.0-50.0); HEMOGLOBIN 8.2 gm/dL (13.0-16.0); MEAN CELL VOLUME 98.3 FL (83-96); MEAN CORPUSCULAR HEMOGLOBIN 31.8 PG (28-34); MEAN CORPUSCULAR HGB CONC 32.4 g/dL (30-36); MEAN PLATELET VOLUME 9.2 FL (6.5-11.5); RED BLOOD COUNT 2.58 X10e (3.90-5.60); RED CELL DISTRIBUTION WIDTH 18.7 % (11.0-15.5); WHITE BLOOD COUNT 4.5 X10e3 (4.0-10.5)
[2016-12-08 07:53] LABS: CALCIUM SERUM 8.2 mg/dL (8.4-10.2); CARBON DIOXIDE 23 mmol/L (22-31); CHLORIDE 112 mmol/L (100-111); CREATININE SERUM 0.5 mg/dL (0.6-1.4); GLOM FILT RATE Estimated 125.5 mL/min (>60); GLUCOSE FASTING 88 mg/dL (70-110); MAGNESIUM 1.3 mg/dL (1.6-3.0); POTASSIUM 3.8 mmol/L (3.5-5.1); SODIUM 140 mmol/L (135-145)
[2016-12-08 07:54] LABS: BLOOD UREA NITROGEN <5 mg/dL (9-23)
[2016-12-09 12:31] LABS: CALCIUM SERUM 8.1 mg/dL (8.4-10.2); CARBON DIOXIDE 28 mmol/L (22-31); CHLORIDE 110 mmol/L (100-111); CREATININE SERUM 0.4 mg/dL (0.6-1.4); GLOM FILT RATE Estimated 137.6 mL/min (>60); GLUCOSE FASTING 91 mg/dL (70-110); MAGNESIUM 1.7 mg/dL (1.6-3.0); POTASSIUM 3.8 mmol/L (3.5-5.1); SODIUM 139 mmol/L (135-145)
[2016-12-09 12:32] LABS: BLOOD UREA NITROGEN <5 mg/dL (9-23)
[2016-12-10 06:17] LABS: CALCIUM SERUM 8.1 mg/dL (8.4-10.2); CREATININE SERUM 0.3 mg/dL (0.6-1.4); GLOM FILT RATE Estimated 154.8 mL/min (>60); MAGNESIUM 1.7 mg/dL (1.6-3.0); POTASSIUM 3.3 mmol/L (3.5-5.1)
[2016-12-10 22:39] LABS: BASOPHIL% 0.3 % (0-2.5); EOSINOPHIL# 0.5 X10e3 (0-0.7); EOSINOPHIL% 6.7 % (0.0-7.0); HEMATOCRIT 27.8 % (38.0-50.0); HEMOGLOBIN 9.1 gm/dL (13.0-16.0); LYMPHOCYTE# 0.8 X10e3 (1.0-3.5); LYMPHOCYTE% 11.2 % (17.0-45.0); MEAN CELL VOLUME 98.2 FL (83-96); MEAN CORPUSCULAR HEMOGLOBIN 32.1 PG (28-34); MEAN CORPUSCULAR HGB CONC 32.7 g/dL (30-36); MEAN PLATELET VOLUME 8.8 FL (6.5-11.5); MONOCYTE# 0.7 X10e3 (0-1.0); MONOCYTE% 9.9 % (3.0-12.0); NEUTROPHIL# 4.9 X10e3 (1.5-7.1); NEUTROPHIL% 71.9 % (40-75); PLATELET COUNT 157 X10e3 (140-420); RED BLOOD COUNT 2.83 X10e (3.90-5.60); RED CELL DISTRIBUTION WIDTH 18.5 % (11.0-15.5); WHITE BLOOD COUNT 6.9 X10e3 (4.0-10.5)
[2016-12-10 22:43] LABS: DIFF IND NO
[2016-12-10 22:59] LABS: BUN/CREATININE RATIO 16.66; CALCIUM SERUM 8.6 mg/dL (8.4-10.2); CREATININE SERUM 0.3 mg/dL (0.6-1.4); GLOM FILT RATE Estimated 154.8 mL/min (>60); POTASSIUM 3.8 mmol/L (3.5-5.1)
[2016-12-12] MEDS ORDERED: PHENOBARBI20 MG/5 M1 GT (05:26)
[2016-12-12] MEDS ORDERED: CLONAZEPAM0.5 MG GT (05:26)
[2016-12-12] MEDS ORDERED: METOCLOPRAM5 MG/5 ML GT (05:30)
[2016-12-12] MEDS ORDERED: PROTONIX GT (05:32)
[2016-12-12] MEDS ORDERED: CALCIUM GT (05:34)
[2016-12-12 06:30] LABS: MAGNESIUM 1.7 mg/dL (1.6-3.0)
== END 2016-12-12 11:53 | disposition home or self-care (01) | DRG 177 ==
LOC: CED 09:08 → CEDOF 15:00 → C5B 15:00 → CEDOF 15:28 → CED 15:28 → CEDOF 20:12 → C5B 20:12
PROVIDERS: Emergency Medicine; Family Medicine; Internal Medicine; Internal Medicine Endocrinology, Diabetes & Metabolism
PROC: 02HV33Z Insertion of Infusion Device into Superior Vena Cava, Percutaneous Approach (ICD-10-PCS; principal; 2016-12-03)
PROC: B518YZA Fluoroscopy of Superior Vena Cava using Other Contrast, Guidance (ICD-10-PCS; 2016-12-03)
PROC: B548ZZA Ultrasonography of Superior Vena Cava, Guidance (ICD-10-PCS; 2016-12-03)
DX: J69.0 Pneumonitis due to inhalation of food and vomit (principal); R53.2 Functional quadriplegia; F73 Profound intellectual disabilities; E87.2 Acidosis; G80.9 Cerebral palsy, unspecified; R13.10 Dysphagia, unspecified; Z43.1 Encounter for attention to gastrostomy; G40.909 Epilepsy, unspecified, not intractable, without status epilepticus; Z90.49 Acquired absence of other specified parts of digestive tract; E87.6 Hypokalemia; R00.1 Bradycardia, unspecified; K21.9 Gastro-esophageal reflux disease without esophagitis
CPT/HCPCS: 36415; 51701; 71010; 71250; 74000; 74022; 74176; 75820; 76937; 77001; 80048; 80053; 80076; 80200; 80202; 81003; 82274; 82308; 82550; 82553; 82947; 83605; 83690; 83735; 84132; 84443; 84484; 85025; 85027; 85610; 85730; 87040; 87086; 87449; 87493; 87899; 93005; 94640; 94760; 96360; 99285; C1751; C1769; C9113; J2543; J2765; J3260; J3370; J3475; Q9967

== ENCOUNTER 2017-01-05 17:02 | Emergency (ER) | payer OTHER ==
--- NOTE | ~2017-01-05 | CT57 ---
[facility] A Service of [facility] RADIOLOGY TEXT RESULTS PATIENT: RICO MILLER LOCATION: [facility] : [birth year] UNIT #: [id number] AGE: [address]: Radha Sauceda MD SEX: M ORDER DR: [id number] [facility]. [place], [place] [address] [id number] E MR#: [id number] Acc #: [id number] NAME: RICO MILLER. : 1965 SEX: M STUDY DATE/TIME: 01/05/2017 18:53 UNIT: [facility] ROOM: STUDY DESCRIPTION: CT Chest Wo Cont Attending Physician: Radha Sauceda M.D. Ordering Physician: Will Abraham M.D. Primary Care Physician: Maurizio William M.D. MEDICAL IMAGING REPORT This report is preliminary unless electronic signature is present EXAM CT scan of the chest without contrast 01/05/2017 HISTORY Shortness of breath and cough for [address] was performed through the chest without intravenous contrast administration as per clinician request. This CT examination was performed with one or more of the following radiation dose reduction techniques: automatic exposure control, adjustment of mA and/or kV according to patient size, and iterative reconstruction. FINDINGS Compared with the previous chest CT dated 12/02/2016, there has been interval decrease in the right lower lobe infiltrate. Atelectatic changes are seen at the lung bases bilaterally. Focal fibrosis right upper lobe is unchanged. There is no significant thoracic adenopathy. The heart is normal in size. There are no pleural effusions. Scoliosis of the thoracic spine is noted. IMPRESSION 1. Interval decrease in the infiltrate in the right lower lobe compared with a chest CT dated 12/02/2016. No new infiltrates are seen. Stable atelectasis at the lung bases and focal fibrosis right upper lobe. 2. Scoliosis of the thoracic spine. Dictated by... Javid Dickey M.D. THIS IS AN ELECTRONICALLY VERIFIED REPORT [facility] A Service of [facility] RADIOLOGY TEXT RESULTS PATIENT: RICO MILLER [facility]: [id number] : [birth year] UNIT #: [id number] AGE: [address]: Radha Sauceda MD SEX: M ORDER DR: Javid Dickey M.D. at 01/06/2017 2:16 PM MARC/evaristo TD: 01/06/2017 09:42 JOB #: [id number] MEDICAL IMAGING REPORT Page 1 of 1 COPY
--- NOTE | ~2017-01-05 | CR72 ---
[facility] A Service of [facility] & [facility] RADIOLOGY TEXT RESULTS PATIENT: RICO MILLER LOCATION: [facility] : [birth year] UNIT #: [id number] AGE: [address]: Radha Sauceda MD SEX: M ORDER DR: [id number] [facility] [address] [place], [place] [address] [id number] E MR#: [id number] Acc #: [id number] NAME: RICO MILLER. : 1965 SEX: M STUDY DATE/TIME: 01/05/2017 17:38 UNIT: [facility] ROOM: STUDY DESCRIPTION: CR Chest Single View Portable Attending Physician: Radha Sauceda M.D. Ordering Physician: Will Abraham M.D. Primary Care Physician: Maurizio William M.D. MEDICAL IMAGING REPORT This report is preliminary unless electronic signature is present EXAM Portable chest 01/05/2017 HISTORY Cough and shortness of breath for 2 days. FINDINGS The heart is normal in size. The lungs are clear. There are no pleural effusions. Scoliosis of the thoracic spine is noted. IMPRESSION No active pulmonary disease. Dictated by... Javid Dickey M.D. THIS IS AN ELECTRONICALLY VERIFIED REPORT Javid Dickey M.D. at 01/06/2017 2:15 PM MARC/shlomo TD: 01/06/2017 09:29 JOB #: [id number] MEDICAL IMAGING REPORT Page 1 of 1 COPY
[~2017-01-05 17:02] MED LIST changes: +CALCIUM GT; +CLEOCIN PA75 MG/5 M1 GT; +CLONAZEPAM0.5 MG GT; +COGENTIN1 M1 GT; +E.E.S.-GRA200 MG/5 M GT; +FERREX 150 FOR1 EACH GT; +HYDROCODON-ACE1 EAC7 GT; +METOCLOPRAM5 MG/5 ML GT; +PATIENT'S PHARMACY; +PROAMATINE10 MG GT; +PROTONIX GT
[2017-01-05 18:12] LABS: EOSINOPHIL# 0.7 X10e3 (0-0.7); EOSINOPHIL% 5.1 % (0.0-7.0); HEMATOCRIT 33.5 % (38.0-50.0); HEMOGLOBIN 11.3 gm/dL (13.0-16.0); LYMPHOCYTE# 2.9 X10e3 (1.0-3.5); MEAN CELL VOLUME 98.4 FL (83-96); MEAN CORPUSCULAR HEMOGLOBIN 33.1 PG (28-34); MEAN CORPUSCULAR HGB CONC 33.7 g/dL (30-36); MEAN PLATELET VOLUME 9.6 FL (6.5-11.5); MONOCYTE# 3.6 X10e3 (0-1.0); MONOCYTE% 27.1 % (3.0-12.0); NEUTROPHIL# 6.1 X10e3 (1.5-7.1); NEUTROPHIL% 45.8 % (40-75); PLATELET COUNT 379 X10e3 (140-420); RED CELL DISTRIBUTION WIDTH 17.2 % (11.0-15.5); WHITE BLOOD COUNT 13.2 X10e3 (4.0-10.5)
[2017-01-05 18:13] LABS: DIFF IND YES
[2017-01-05 18:32] LABS: ALBUMIN SERUM 3.5 g/dL (3.5-5.0); BILIRUBIN,TOTAL 0.6 mg/dL (0.2-2.0); CALCIUM SERUM 9.5 mg/dL (8.4-10.2); CREATININE SERUM 0.5 mg/dL (0.6-1.4); GLOM FILT RATE Estimated 125.5 mL/min (>60); POTASSIUM 3.6 mmol/L (3.5-5.1); PROTEIN TOTAL SERUM 8.2 g/dL (6.0-8.3)
[2017-01-05 18:46] LABS: PLATELET ESTIMATE NORMAL (NORMAL)
== END 2017-01-08 20:14 | disposition home or self-care (01) ==
LOC: CED 17:02
PROVIDERS: Emergency Medicine
DX: R05 Cough (principal)
CPT/HCPCS: 36415; 71010; 71250; 80053; 83605; 85025; 87040; 99285